=== PATIENT | male | born 1950 | race Caucasian/White ===

== ENCOUNTER 2017-01-17 19:18 | Inpatient (IN) | payer OTHER ==
[~2017-01-17] VITALS: Ht 188 cm; Wt 85.0 kg
[2017-01-17 19:20] VITALS: BP 162/108; PULSE 97; RESP 18; TEMP 98.2; O2SAT 98
--- NOTE | 2017-01-17 20:03 | PD ---
Physical Exam Date Seen by Provider: Jan 17, 2017 Time Seen by Provider: 19:56 Narrative 66 YOWM C/O 2 WEEKS AGO NEAR FALL WITH POP IN L THIGH FOLLOWED BY SWELLING AND ECCHYMOSIS.NO NECK OR BACK PAIN . H/O ALCOHOL VS NOTED. PT AWAITING BED PLACEMENT. Data Data Last Documented VS Vital Signs Date Time Temp Pulse Resp B/P Pulse Ox O2 Delivery O2 Flow Rate FiO2 01/17/17 19:20 98.2 97 18 162/108 98 Room Air [facility] Medical Record Reviewed: Yes Supervised Visit with KACIE: Yes Jewel Villavicencio Jan 17, 2017 20:03
--- NOTE | 2017-01-17 20:17 | PD ---
HPI Chief Complaint: Fall Time Seen by Provider: 20:11 Travel History International Travel<30 days: No Contact w/Intl Traveler<30days: No Traveled to known affect area: No History of Present Illness HPI The patient is a 66 year old male who presents to the [facility] emergency department with a history of reportedly 5 weeks ago slipping and falling on tile floor. He reports that he fell into a split position landing on bilateral hands. He denies hitting his head or losing consciousness. He reports that he felt immediate pain and a pop in the left anterior thigh. The patient reports that he has not been able to weight-bear since then. He reports that he has been using a wheelchair at home. The patient reports that the leg developing bruising all the way down to the foot. He reports that he does not have a primary care physician. He is visiting from [place] since June 2016. He reports that he has not seen a doctor for evaluation for the last 40 years. The patient denies having any other extremity pain. The patient denies any recent fevers, cough, congestion, neck pain, chest pain, shortness of breath, abdominal pain, vomiting, diarrhea, urinary symptoms, or neurologic symptoms. ETOH: vodka and tea 6-8 per day. PFSH Past Medical History Narrative Medical The patient's past medical history is significant for daily alcohol abuse, tobacco use. Medical History: Denies Significant Hx Past Surgical History Narrative Surgical The patient's past surgical history is significant for a tonsillectomy, multiple dental extractions. Surgical History: No Previous Surgery Tonsillectomy: Yes Social History Alcohol Use: Yes (6-8 per DAILY) Tobacco Use: Yes (1/2PPD) Substance Use: No Allergies-Medications (Allergen,Severity, Reaction): Coded Allergies: No Known Allergies (Unverified , 01/17/17) Narrative Medication Aleve PRN, Tylenol PRN Review of Systems Except as stated in HPI: all other systems reviewed are Neg General / Constitutional: No: Fever, Chills Eyes: No: Visual changes HENT: No: Headaches Cardiovascular: No: Chest Pain or Discomfort, Dyspnea on exertion Respiratory: No: Shortness of Breath Gastrointestinal: No: Nausea, Diarrhea, Abdominal Pain, Changes in Bowel Habits , Indigestion Genitourinary: No: Dysuria Musculoskeletal: Positive: Myalgias, Arthralgias, Limited ROM, Edema, No: Pain Skin: No Rash Neurologic: Positive: Slurred Speech, No: Weakness, Focal Abnormalities, Change in Mentation, Sensory Disturbance Psychiatric: Positive: Substance Abuse, No: Depression Endocrine: No: Polydipsia Hematologic/Lymphatic: No: Easy Bruising Physical Exam Narrative General: The patient is a well-developed well-nourished male in no acute distress. Head and Neck exam: Head is normocephalic atraumatic. Eyes: EOMI, pupils are equal round and reactive to light. Nose: Midline septum with pink mucous membranes Mouth: Dentition unremarkable. Moist mucus membranes. Posterior oropharynx is not erythematous. No tonsillar hypertrophy. Uvula midline. Airway patent. Neck: No palpable lymphadenopathy. No nuchal rigidity. No thyromegaly. Cardiovascular: Regular rate and rhythm without murmurs, gallops, or rubs. Lungs: Clear to auscultation bilaterally. No wheezes, rhonchi, or rales. Abdomen: Soft, without tenderness to palpation in all 4 quadrants of the abdomen. No guarding, rebound, or rigidity. Normal bowel sounds are audible. No tenderness on palpation of McBurney's point. Extremities: No pelvic pain or pelvic instability on pelvic rock. No clubbing, cyanosis, or edema. 2+ pulses in all 4 extremities. The patient on examination of the left leg is noted to have shortening and external rotation. The patient is noted to have swelling along the anterior upper and lateral thigh. There is tenderness noted to the site on palpation. No crepitus on palpation. The patient has intact sensation of all toes. The patient has less than 3 second capillary refill. Back: No costovertebral angle tenderness to palpation. Neurologic Exam: Cranial nerves 2-12 were intact on exam. Strength is 5/5 in all 4 extremities. No sensory deficits noted. The patient is oriented to person, place, however not time. The patient has slurred speech with an odor of alcohol about him. Skin Exam: No rash noted. Intact skin that is warm and dry. Data Data Last Documented VS Vital Signs Date Time Temp Pulse Resp B/P Pulse Ox O2 Delivery O2 Flow Rate FiO2 01/17/17 20:44 18 99 Room Air 01/17/17 19:20 98.2 97 162/108 Orders Diet Npo (01/18/17 Breakfast) Complete Blood Count With Diff (01/17/17 20:24) Comprehensive Metabolic Panel (01/17/17 20:24) Prothrombin Time / Inr (Pt) (01/17/17 20:24) Act Partial Throm Time (Ptt) (01/17/17 20:24) Type And Screen (01/17/17 20:24) Urinalysis - C+S If Indicated (01/17/17 20:24) Femur (Ap & Lat/2vws) (01/17/17 20:24) Hip, Uni(Ap&Lat) W Ap Pelvis (01/17/17 20:24) Ice/Cold Pack (01/17/17 20:24) Electrocardiogram (01/17/17 20:24) Magnesium (Mg) (01/17/17 20:24) Chest, Single Ap (01/17/17 20:24) Iv Access Insert/Monitor (01/17/17 20:24) Ecg Monitoring (01/17/17 20:24) Oximetry (01/17/17 20:24) Drug Screen, Random Urine (01/17/17 20:24) Alcohol (Ethanol) (01/17/17 20:24) Sodium Chlor 0.9% 1000 Ml Inj (Ns 1000 M (01/17/17 20:30) Morphine Inj (Morphine Inj) (01/17/17 22:30) Ondansetron Inj (Zofran Inj) (01/17/17 22:30) Admit Order (Ed Use Only) (01/17/17 22:38) Splint Or Brace Apply/Monitor (01/17/17 22:38) Consult Orthopedic (01/17/17 ) Labs Laboratory Tests Test 01/17/17 20:50 White Blood Count 6.7 TH/MM3 Red Blood Count 5.98 MIL/MM3 Hemoglobin 18.8 GM/DL Hematocrit 57.0 % Mean Corpuscular Volume 95.3 FL Mean Corpuscular Hemoglobin 31.5 PG Mean Corpuscular Hemoglobin 33.0 % Concent Red Cell Distribution Width 17.4 % Platelet Count 254 TH/MM3 Mean Platelet Volume 7.5 FL Neutrophils (%) (Auto) 34.9 % Lymphocytes (%) (Auto) 56.3 % Monocytes (%) (Auto) 5.7 % Eosinophils (%) (Auto) 1.8 % Basophils (%) (Auto) 1.3 % Neutrophils # (Auto) 2.3 TH/MM3 Lymphocytes # (Auto) 3.8 TH/MM3 Monocytes # (Auto) 0.4 TH/MM3 Eosinophils # (Auto) 0.1 TH/MM3 Basophils # (Auto) 0.1 TH/MM3 CBC Comment DIFF FINAL Differential Comment Prothrombin Time 11.4 SEC Prothromb Time International 1.0 RATIO Ratio Activated Partial 27.8 SEC Thromboplast Time Sodium Level 138 MEQ/L Potassium Level 4.0 MEQ/L Chloride Level 98 MEQ/L Carbon Dioxide Level 28.3 MEQ/L Anion Gap 12 MEQ/L Blood Urea Nitrogen 4 MG/DL Creatinine 0.82 MG/DL Estimat Glomerular Filtration 95 ML/MIN Rate Random Glucose 84 MG/DL Calcium Level 9.3 MG/DL Magnesium Level 1.9 MG/DL Total Bilirubin 0.4 MG/DL Aspartate Amino Transf 27 U/L (AST/SGOT) Alanine Aminotransferase 19 U/L (ALT/SGPT) Alkaline Phosphatase 142 U/L Total Protein 7.5 GM/DL Albumin 4.1 GM/DL Ethyl Alcohol Level 292 MG/DL Blood Type O POSITIVE Antibody Screen NEGATIVE Blood Bank Comment MDM Medical Decision Making Medical Screen Exam Complete: Yes Emergency Medical Condition: Yes Medical Record Reviewed: Yes Interpretation(s) Last Impressions Hip and Pelvis X-Ray 01/17/172023 Signed Impressions: Service Date/Time: Tuesday, January 17, 2017 21:19 - CONCLUSION: 1. Subtrochanteric fracture of the proximal left femur with at least one shaft width displacement. Jewel Styles MD Femur X-Ray 01/17/172023 Signed Impressions: Service Date/Time: Tuesday, January 17, 2017 21:23 - CONCLUSION: 1. Displaced subtrochanteric fracture left femur. Jewel Styles MD Chest X-Ray 01/17/172023 Signed Impressions: Service Date/Time: Tuesday, January 17, 2017 21:19 - CONCLUSION: 1. Minimal basilar atelectasis. No consolidation or effusion. Multiple healed right rib fractures. Jewel Styles MD Differential Diagnosis Quadriceps rupture, versus left hip fracture, versus left femur fracture, versus dislocation, versus hematoma Narrative Course During the course of the patients emergency department visit, the patients history, examination, and differential diagnosis were reviewed with the patient. The patient had IV access obtained and blood work sent for analysis. The patient was placed on a court monitor with oximetry and blood pressure monitoring. An x-ray of the chest, pelvis, left hip, left femur has been ordered. The patient had an EKG done that shows a sinus rhythm heart rate of 87 , nonspecific T-wave abnormalities, no acute ST segment elevation is noted. T waves are inverted in lead 3. The patient was provided normal saline at 75 mL per hour. The patients laboratory studies were reviewed and remarkable for white count of 6.7, hemoglobin 18.8, platelets 254 with 56.3 lymphocytes, CMP is remarkable for BUN of 4, alkaline phosphatase 142, PT PTT within normal limits, alcohol level to 92. Radiology studies were reviewed and remarkable for a left proximal femur fracture just beyond the intertrochanteric line that is displaced, at least 1 shaft width of displacement. A chest x-ray shows minimal Beseler atelectasis, no consolidation or effusion, multiple healed right rib fractures The patient's case was discussed with Dr. Garcia at 10:37 PM. He requested that the patient be admitted to the hospitalist service. While the patient was awaiting a bed for admission, the patient became increasingly agitated. The patient became belligerent to his significant other at the bedside. The patient was insistent on leaving. The patient's alcohol level came back at 292. The patient insisted that he would come back in the morning for his surgery. I patiently explained to him that he would not be able to leave as this surgery is not done as an outpatient. The patient reported that he will just let it heal on its own, however I explained that it would not heal on its own as it is displaced. The patient was oriented to person, place, however not time or situation. The patient's significant other left him after he became increasingly agitated and belligerent with her. The patient was placed under a Munoz act due to his acute alcohol intoxication and inability to care for himself and make appropriate decisions. The patients results were discussed with the patient, including the plan of care. I explained that further testing and/ or monitoring is indicated based on the patients history, examination, and/ or laboratory findings. Therefore, I recommended admission for additional evaluation. The patient expressed understanding and was agreeable with this plan. The patient was admitted to the hospital in guarded condition and [facility] Phys[facility] Communication Physician Communication The patient's case was discussed with Dr. Martinez who did agree to admit the patient for further evaluation and treatment at this time. The patient's case was discussed with Dr. Garcia who did agree to see the patient in consultation. He requested that the patient be made nothing by mouth after midnight. Diagnosis Primary Impression: Left femoral shaft fracture Qualified Code: S72.322A - Closed displaced transverse fracture of shaft of left femur, initial encounter Additional Impression: Alcohol intoxication Qualified Code: F10.129 - Alcohol intoxication, with unspecified complication Admitting Information Admitting Physician Requests: Admit Giovanna Milligan MD Jan 17, 2017 20:17
[2017-01-17 20:43] VITALS: RESP 18; O2SAT 99
[2017-01-17] MEDS: SODIUM CHLOR 0.9% 1000 ML INJ 1,000 ML IV SCH (20:56)
[2017-01-17 21:16] LABS: AUTOMATED NEUTROPHIL # 2.3 TH/MM3 (1.8-7.7); BASOPHIL # 0.1 TH/MM3 (0-0.2); BASOPHIL % 1.3 % (0.0-2.0); EOSINOPHIL # 0.1 TH/MM3 (0-0.4); EOSINOPHIL % 1.8 % (0.0-4.0); HEMO FLAGS DIFF FINAL; LYMPH % 56.3 % (9.0-44.0); LYMPHOCYTE # 3.8 TH/MM3 (1.0-4.8); MEAN CELL VOLUME 95.3 FL (80.0-100.0); MEAN CORPUSCULAR HEMOGLOBIN 31.5 PG (27.0-34.0); MONO % 5.7 % (0.0-8.0); NEUT % 34.9 % (16.0-70.0); PLATELET COUNT 254 TH/MM3 (150-450); RED BLOOD COUNT 5.98 MIL/MM3 (4.50-5.90); RED CELL DISTRIBUTION WIDTH 17.4 % (11.6-17.2); WHITE BLOOD COUNT 6.7 TH/MM3 (4.0-11.0)
[2017-01-17 21:43] LABS: ALKALINE PHOSPHATASE 142 U/L (45-117); ALT (GPT) 19 U/L (12-78); ANION GAP 12 MEQ/L (5-15); AST (GOT) 27 U/L (15-37); BICARBONATE 28.3 MEQ/L (21.0-32.0); BLOOD UREA NITROGEN 4 MG/DL (7-18); CHLORIDE 98 MEQ/L (98-107); GLOMERULAR FILTRATION RATE 95 ML/MIN (>89); MAGNESIUM 1.9 MG/DL (1.5-2.5); SODIUM (NA) 138 MEQ/L (136-145); TOTAL BILIRUBIN ADULT 0.4 MG/DL (0.2-1.0)
[2017-01-17 21:45] LABS: APTT (PATIENT) 27.8 SEC (24.3-30.1); PROTHROMBIN TIME - PATIENT 11.4 SEC (9.8-11.6)
--- NOTE | 2017-01-17 22:06 | RADRPT ---
EXAM DATE/TIME: 01/17/2017 21:19 [facility] COMPARISON: No previous studies available for comparison. INDICATIONS : Left hip pain, fell MEDICAL HISTORY : None. SURGICAL HISTORY : None. ENCOUNTER: Initial ACUITY: 1 month PAIN SCORE: 2/10 LOCATION: Left Hip FINDINGS: There is a displaced subtrochanteric fracture of the proximal left femur with at least one shaft widt h displacement. No dislocation at the hip. Bones are osteopenic. CONCLUSION: 1. Subtrochanteric fracture of the proximal left femur with at least one shaft width displacement. Jewel Styles MD on January 17, 2017 at 22:03 Board Certified Radiologist. This report was verified electronically.
--- NOTE | 2017-01-17 22:21 | RADRPT ---
EXAM DATE/TIME: 01/17/2017 21:19 [facility] COMPARISON: No previous studies available for comparison. INDICATIONS : Evaluate chest for trauma, fell MEDICAL HISTORY : None. SURGICAL HISTORY : None. ENCOUNTER: Initial ACUITY: 1 month PAIN SCORE: 0/10 LOCATION: chest FINDINGS: Mild basilar atelectasis. No effusion. No pneumothorax. Multiple healed right rib fractures. Tortuous aorta. CONCLUSION: 1. Minimal basilar atelectasis. No consolidation or effusion. Multiple healed right rib fractures. Jewel Styles MD on January 17, 2017 at 22:18 Board Certified Radiologist. This report was verified electronically.
--- NOTE | 2017-01-17 22:22 | RADRPT ---
EXAM DATE/TIME: 01/17/2017 21:23 [facility] COMPARISON: No previous studies available for comparison. INDICATIONS : Left proximal femur pain, fell MEDICAL HISTORY : None. SURGICAL HISTORY : None. ENCOUNTER: Initial ACUITY: 1 month PAIN SCORE: 6/10 LOCATION: Left Femur FINDINGS: There is a subtrochanteric fracture of the proximal left femur with just over one shaft width displac ement. No dislocation at the hip. Osteopenia. CONCLUSION: 1. Displaced subtrochanteric fracture left femur. Jewel Styles MD on January 17, 2017 at 22:20 Board Certified Radiologist. This report was verified electronically.
[2017-01-17] MEDS ORDERED: MORPHINE SULFATE 4 MG/ML INJ IV PUSH ONE (22:30)
[2017-01-17] MEDS ORDERED: ONDANSETRON HCL 4 MG/2 ML VIAL IV PUSH ONE (22:30)
--- NOTE | 2017-01-17 22:59 | HHI.HP ---
[facility] Service [facility] Hospitalists Primary Care Physician No Primary Care Physician Admission Diagnosis Left femur fracture Diagnoses: (1) Fall Diagnosis: Principal (2) Left femoral shaft fracture Diagnosis: Principal (3) Tobacco abuse Diagnosis: Principal (4) Alcohol abuse Diagnosis: Principal Travel History International Travel<30 Days: No Contact w/Intl Traveler <30 Da: No Traveled to Known Affected Are: No History of Present Illness This is a 66-year-old male with a PMH of Alcohol Abuse and Tobacco Abuse who presented to the ER with complaints of left hip pain x5 wks. Per pt he had mechanical slip and fall approx 5wks ago w/ severe left hip pain, unable to bare weight. Denies LOC or head trauma at that time. States he's been using wheelchair to get around. Has not sought medical attention until now due to increased bruising of left leg. On arrival, BP 162/108, HR was 97, O2 sat 98% on RA, Afebrile. WBC normal. Hgb 18.8. INR 1.0. Alcohol to 92. CXR with basilar atelectasis no consolidation, multiple healed right rib fractures. Femur X-ray with displaced subtrochanteric fracture of left femur. Hip x-ray shows same. Dr. Garcia consulted by ER physician, will evaluate for likely surgical intervention in a.m. Review of Systems Except as stated in HPI: all other systems reviewed are Neg ROS: 14 point review of systems otherwise negative. Past Family Social History Past Medical History PMH: Alcohol Abuse and Tobacco Abuse Past Surgical History PAST SURGICAL HISTORY: Tonsillectomy Allergies: Coded Allergies: No Known Allergies (Unverified , 01/17/17) Family History PAST FAMILY HISTORY: Reviewed. No h/o DM or CAD Social History PAST SOCIAL HISTORY: 6-8 Vodka Drinks per day. Smokes 1/2ppd. Negative for drugs. Physical Exam Vital Signs Vital Signs Date Time Temp Pulse Resp B/P Pulse Ox O2 Delivery O2 Flow Rate FiO2 01/17/17 20:44 18 99 Room Air 01/17/17 20:43 18 99 Room Air 01/17/17 19:20 98.2 97 18 162/108 98 Room Air Physical Exam PE: GENERAL: Pleasant middle-aged white male in no acute distress. HEENT: PERRLA, EOMI. No scleral icterus or conjunctival pallor. No lid lag or facial droop. CARDIOVASCULAR: Regular rate and rhythm. No obvious murmurs to auscultation. No chest tenderness to palpation. RESPIRATORY: No obvious rhonchi or wheezing. Clear to auscultation. Breath sounds equal bilaterally. GASTROINTESTINAL: Abdomen soft, non-tender, nondistended. BS normal. MUSCULOSKELETAL: Decreased ROM of LLE due to injury, externally rotated. + swelling to left thigh. Pulses intact. NEUROLOGICAL: Awake, alert and oriented x4. No focal neurologic deficits. Moving both upper and lower extremities spontaneously. Laboratory Laboratory Tests Test 01/17/17 20:50 White Blood Count 6.7 Red Blood Count 5.98 Hemoglobin 18.8 Hematocrit 57.0 Mean Corpuscular Volume 95.3 Mean Corpuscular Hemoglobin 31.5 Mean Corpuscular Hemoglobin 33.0 Concent Red Cell Distribution Width 17.4 Platelet Count 254 Mean Platelet Volume 7.5 Neutrophils (%) (Auto) 34.9 Lymphocytes (%) (Auto) 56.3 Monocytes (%) (Auto) 5.7 Eosinophils (%) (Auto) 1.8 Basophils (%) (Auto) 1.3 Neutrophils # (Auto) 2.3 Lymphocytes # (Auto) 3.8 Monocytes # (Auto) 0.4 Eosinophils # (Auto) 0.1 Basophils # (Auto) 0.1 CBC Comment DIFF FINAL Differential Comment Prothrombin Time 11.4 Prothromb Time International 1.0 Ratio Activated Partial 27.8 Thromboplast Time Sodium Level 138 Potassium Level 4.0 Chloride Level 98 Carbon Dioxide Level 28.3 Anion Gap 12 Blood Urea Nitrogen 4 Creatinine 0.82 Estimat Glomerular Filtration 95 Rate Random Glucose 84 Calcium Level 9.3 Magnesium Level 1.9 Total Bilirubin 0.4 Aspartate Amino Transf 27 (AST/SGOT) Alanine Aminotransferase 19 (ALT/SGPT) Alkaline Phosphatase 142 Total Protein 7.5 Albumin 4.1 Ethyl Alcohol Level 292 Blood Type O POSITIVE Antibody Screen NEGATIVE Blood Bank Comment Result Diagram: 01/17/17204901/17/172049 Assessment and Plan Problem List: (1) Fall ICD Code: W19.XXXA Status: Acute (2) Left femoral shaft fracture ICD Code: S72.302A Status: Acute (3) Alcohol abuse ICD Code: F10.10 Status: Acute (4) Tobacco abuse ICD Code: Z72.0 Status: Acute Assessment and Plan A/P: 1. Fall: s/p mechanical fall 5wks ago at home, denies LOC or head trauma, did not seek medical attention at time of fall. 2. Left Femur Fx: Femur X-ray w/ displaced subtrochanteric fracture of left femur, images reviewed by me. Dr. Garcia consulted by ER physician, plan is for surgical intervention. NPO, IVF, analgesics/antiemetics as needed. 3. Alcohol Abuse: 6-8 Vodka drinks per day, +intoxicated, Alcohol 292. High risk for withdrawal. Seizure Precautions, CIWA, MVT/Thiamine/Folate replacement. 4. Tobacco Abuse: Pt counselled. Ativan prn. CXR w/ basilar atelectasis, no acute findings, images reviewed by me. DuoNeb prn. 5. DVT Prophylaxis: Anticoagulation post op per Ortho 6. Social work for d/c planning as needed. 7. Case discussed w/ ER physician at length. Physician Certification 2 Midnight Certification Type: Admission for Inpatient Services Order for Inpatient Services The services are ordered in accordance with Medicare regulations or non- Medicare payer requirements, as applicable. In the case of services not specified as inpatient-only, they are appropriately provided as inpatient services in accordance with the 2-midnight benchmark. Estimated LOS (days): 2 days is the estimated time the patient will need to remain in the hospital, assuming treatment plan goals are met and no additional complications. Post-Hospital Plan: Not yet determined Problem Qualifiers (1) Left femoral shaft fracture: Qualified Code: S72.322A - Closed displaced transverse fracture of shaft of left femur, initial encounter Alicia Martinez MD Jan 17, 2017 22:59
[2017-01-17] MEDS ORDERED: BISACODYL 10 MG SUPP RECTAL PRN (23:00)
[2017-01-17] MEDS ORDERED: HALOPERIDOL LACTATE 5 MG/ML AMP IM PRN (23:00)
[2017-01-17] MEDS ORDERED: LORazepam 2 MG TAB PO PRN (23:00)
[2017-01-17] MEDS: THIAMINE INJ 100 MG in SODIUM CHLORIDE 0.9% INJ 100 ML IV SCH (23:00)
[2017-01-17] MEDS ORDERED: LORazepam 1 MG TAB PO PRN (23:00)
[2017-01-17] MEDS ORDERED: ACETAMINOPHEN 325 MG TAB PO PRN (23:00)
[2017-01-17] MEDS ORDERED: FLUMAZENIL 0.5 MG/5 ML VIAL IV PUSH PRN (23:00)
[2017-01-17] MEDS ORDERED: LORazepam 2 MG/ML VIAL IV PUSH PRN ×4 (23:00)
[2017-01-17] MEDS ORDERED: SODIUM CHLORIDE 0.9% FLUSH 10 ML FLUSH IV FLUSH PRN (23:00)
[2017-01-17] MEDS ORDERED: ONDANSETRON HCL 4 MG/2 ML VIAL IVP PRN (23:00)
[2017-01-17] MEDS ORDERED: MORPHINE SULFATE 4 MG/ML INJ IV PRN (23:00)
[2017-01-17] MEDS ORDERED: ACETAMINOPHEN/HYDROcodone 325 MG/5 MG TAB PO PRN (23:00)
[2017-01-17] MEDS ORDERED: THIAMINE INJ 100 MG in SODIUM CHLORIDE 0.9% INJ 100 ML IV ONE (23:30)
[2017-01-17] MEDS ORDERED: LORazepam 2 MG/ML VIAL IV PUSH ONE (23:30)
[2017-01-18] VITALS (7 sets, daily range): BP systolic 109–168; BP diastolic 64–93; PULSE 67–110; RESP 17–18; TEMP 96.7–98.1; O2SAT 95–98
[2017-01-18] MEDS: MULTIVITAMIN INJ 10 ML, FOLIC ACID INJ 1 MG in SODIUM CHLORID 0.9% 500 ML INJ 500 ML IV SCH ×2 (00:22→23:26)
[2017-01-18] MEDS ORDERED: POVIDONE IODINE 5% (ANTISEPSIS KIT) 4 APPLICATIONS EACH NARE PRN (02:15)
[2017-01-18] MEDS ORDERED: LACTATED RINGER'S 1000 ML IV PRN (02:15)
[2017-01-18] MEDS ORDERED: INSULIN HUMAN REGULAR 1,000 UNITS/10 ML VIAL SQ PRN (02:15)
[2017-01-18] MEDS ORDERED: SODIUM CHLORID 0.9% 500 ML IV PRN (02:15)
[2017-01-18] MEDS ORDERED: CHLORHEXIDINE GLUCONATE 2 % 1 PACK (2 CLOTHS) TOPICAL PRN (02:15)
[2017-01-18] MEDS ORDERED: METOPROLOL TARTRATE 25 MG TAB PO PRN (02:15)
[2017-01-18] MEDS ORDERED: ceFAZolin 2 GM PREMIX 50 ML IV SCH (05:00)
--- NOTE | 2017-01-18 06:36 | PD.ORT.PN ---
Subjective Subjective Remarks s/p fall approx 5-8 weeks ago. patient unsure as to exact time frame. states was walking in kitchen when slipped and fell. heard and felt pop in left hip. immediate pain. states used wheelchair for ambulating and pain eventually subsided. reports no pain currently. Objective Vitals Vital Signs Date Time Temp Pulse Resp B/P Pulse Ox O2 Delivery O2 Flow Rate FiO2 01/18/17 04:28 96.7 74 17 113/64 96 01/18/17 00:22 95 18 134/80 98 Room Air 01/18/17 00:07 Room Air 01/17/17 20:44 18 99 Room Air 01/17/17 20:43 18 99 Room Air 01/17/17 19:20 98.2 97 18 162/108 98 Room Air Result Diagram: 01/17/17204901/17/172049 Other Results Laboratory Tests Test 01/17/17 20:50 Prothrombin Time 11.4 SEC (9.8-11.6) Prothromb Time International 1.0 RATIO Ratio Imaging Last 24 hours Impressions Hip and Pelvis X-Ray 01/17/172023 Signed Impressions: Service Date/Time: Tuesday, January 17, 2017 21:19 - CONCLUSION: 1. Subtrochanteric fracture of the proximal left femur with at least one shaft width displacement. Jewel Styles MD Femur X-Ray 01/17/172023 Signed Impressions: Service Date/Time: Tuesday, January 17, 2017 21:23 - CONCLUSION: 1. Displaced subtrochanteric fracture left femur. Jewel Styles MD Chest X-Ray 01/17/172023 Signed Impressions: Service Date/Time: Tuesday, January 17, 2017 21:19 - CONCLUSION: 1. Minimal basilar atelectasis. No consolidation or effusion. Multiple healed right rib fractures. Jewel Styles MD Objective Remarks LLE: full motion of hip. no pain. NVI Assessment & Plan Assessment and Plan 1) Left Subtroch Femur Fx -npo -consents -surgery today Alex Kern Jan 18, 2017 06:36
[2017-01-18 07:04] LABS: ALKALINE PHOSPHATASE 105 U/L (45-117); ALT (GPT) 14 U/L (12-78); ANION GAP 12 MEQ/L (5-15); AST (GOT) 20 U/L (15-37); BICARBONATE 21.3 MEQ/L (21.0-32.0); BLOOD UREA NITROGEN 5 MG/DL (7-18); CHLORIDE 106 MEQ/L (98-107); GLOMERULAR FILTRATION RATE 128 ML/MIN (>89); POTASSIUM 4.2 MEQ/L (3.5-5.1); SODIUM (NA) 139 MEQ/L (136-145); TOTAL BILIRUBIN ADULT 0.4 MG/DL (0.2-1.0)
[2017-01-18 07:19] LABS: AUTOMATED NEUTROPHIL # 1.7 TH/MM3 (1.8-7.7); BASOPHIL % 0.9 % (0.0-2.0); EOSINOPHIL # 0.1 TH/MM3 (0-0.4); EOSINOPHIL % 2.8 % (0.0-4.0); HEMATOCRIT 47.6 % (39.0-51.0); HEMO FLAGS DIFF FINAL; LYMPHOCYTE # 2.8 TH/MM3 (1.0-4.8); MEAN CORPUSCULAR HEMOGLOBIN 32.1 PG (27.0-34.0); MEAN CORPUSCULAR HGB CONC 33.4 % (32.0-36.0); MONO % 8.4 % (0.0-8.0); NEUT % 33.9 % (16.0-70.0); PLATELET COUNT 248 TH/MM3 (150-450); RED BLOOD COUNT 4.96 MIL/MM3 (4.50-5.90); RED CELL DISTRIBUTION WIDTH 17.3 % (11.6-17.2); WHITE BLOOD COUNT 5.2 TH/MM3 (4.0-11.0)
[2017-01-18] MEDS ORDERED: SODIUM CHLORIDE 0.9% FLUSH 10 ML FLUSH IV FLUSH SCH (09:00)
--- NOTE | 2017-01-18 09:43 | HHI.PR ---
Subjective Remarks Follow-up femur fracture, alcohol abuse. Patient reports ongoing pain in the left hip. No other complaints at this time. Going for surgery this morning. Objective Vitals Vital Signs Date Time Temp Pulse Resp B/P Pulse Ox O2 Delivery O2 Flow Rate FiO2 01/18/17 07:46 98.1 67 18 109/64 95 01/18/17 04:28 96.7 74 17 113/64 96 01/18/17 00:22 95 18 134/80 98 Room Air 01/18/17 00:07 Room Air 01/17/17 20:44 18 99 Room Air 01/17/17 20:43 18 99 Room Air 01/17/17 19:20 98.2 97 18 162/108 98 Room Air Result Diagram: 01/18/17 0552 01/18/17 0552 Imaging Last Impressions Hip and Pelvis X-Ray 01/17/172023 Signed Impressions: Service Date/Time: Tuesday, January 17, 2017 21:19 - CONCLUSION: 1. Subtrochanteric fracture of the proximal left femur with at least one shaft width displacement. Jewel Styles MD Femur X-Ray 01/17/172023 Signed Impressions: Service Date/Time: Tuesday, January 17, 2017 21:23 - CONCLUSION: 1. Displaced subtrochanteric fracture left femur. Jewel Styles MD Chest X-Ray 01/17/172023 Signed Impressions: Service Date/Time: Tuesday, January 17, 2017 21:19 - CONCLUSION: 1. Minimal basilar atelectasis. No consolidation or effusion. Multiple healed right rib fractures. Jewel Styles MD Objective Remarks General: No acute distress. Mildly tremulous. Heart: Regular rate and rhythm. No murmur. Lungs: Clear to auscultation bilaterally. No wheezes, rales, or rhonchi. Breathing is nonlabored. Abdomen: Soft, nontender, nondistended. Extremities: No lower extremity edema. Psych: Alert and oriented. Urinary Catheter: No Vascular Central Line Catheter: No A/P Problem List: (1) Fall ICD Code: W19.XXXA Status: Acute (2) Left femoral shaft fracture ICD Code: S72.302A Status: Acute (3) Alcohol abuse ICD Code: F10.10 Status: Chronic (4) Tobacco abuse ICD Code: Z72.0 Status: Chronic Assessment and Plan 1. Status post mechanical fall about 8 weeks ago at home per patient report. Did not seek medical attention at the time of the fall. 2. Left femur fracture: Appreciate orthopedic surgery recommendations. Planning for surgical intervention today. Nothing by mouth. Continue pain control. 3. Alcohol abuse: Continue CIWA protocol, seizure precautions. Continue multivitamin, thiamine, folate. Patient has been counseled. He presented to the ER intoxicated with an alcohol level of 292. Drink 6-8 vodka drinks per day. 4. Tobacco abuse: Counseled to quit smoking. DuoNeb as needed. 5. DVT prophylaxis: Prophylaxis on hold secondary to proposed surgical intervention. Will need anticoagulation per orthopedic surgery recommendations postoperatively. Problem Qualifiers (1) Left femoral shaft fracture: Qualified Code: S72.322A - Closed displaced transverse fracture of shaft of left femur, initial encounter Will Schaffer MD Jan 18, 2017 09:43
[2017-01-18] MEDS: SODIUM CHLOR 0.9% 1000 ML INJ 1,000 ML IV SCH ×2 (09:50→23:27)
[2017-01-18] MEDS ORDERED: ceFAZolin 2 GM PREMIX 50 ML ONE (09:52)
[2017-01-18] MEDS ORDERED: GENTAMICIN SULFATE 80 MG/2 ML VIAL ONE (09:53)
[2017-01-18] MEDS ORDERED: VANCOMYCIN HCL 1000 MG VIAL ONE (09:53)
[2017-01-18] MEDS ORDERED: FAMOTIDINE 20 MG/2 ML VIAL ONE (10:56)
[2017-01-18] MEDS ORDERED: ACETAMINOPHEN 1000 MG/100 ML VIAL IV ONE (10:56)
[2017-01-18] MEDS ORDERED: BUPIVACAINE/EPINEPHRINE 0.25% PF 10 ML VIAL ONE (11:02)
[2017-01-18] MEDS ORDERED: fentaNYL CITRATE 250 MCG/5 ML AMP ONE ×2 (11:03→13:39)
[2017-01-18] MEDS ORDERED: ONDANSETRON HCL 4 MG/2 ML VIAL ONE (11:04)
[2017-01-18] MEDS ORDERED: MIDAZOLAM HCL 2 MG/2 ML VIAL ONE (11:05)
[2017-01-18] MEDS ORDERED: TRANEXAMIC ACID INJ 1,000 MG/10 ML AMP ONE (11:54)
[2017-01-18 12:33] LABS: HEMATOCRIT 43.4 % (39.0-51.0); REVIEW FLAG FINAL
[2017-01-18] MEDS ORDERED: ERGOCALCIFEROL (VIT D2) 50,000 UNIT CAP PO ONE (13:00)
[2017-01-18] MEDS ORDERED: ENOXAPARIN SODIUM 30 MG/0.3 ML SYRINGE SQ SCH (13:00)
[2017-01-18] MEDS ORDERED: diphenhydrAMINE HCL 25 MG CAP PO PRN (13:00)
[2017-01-18] MEDS ORDERED: ACETAMINOPHEN/HYDROcodone 325 MG/7.5 MG TAB PO PRN (13:00)
[2017-01-18] MEDS ORDERED: SODIUM CHLORIDE 0.9% FLUSH 5 ML FLUSH IVF PRN (13:00)
[2017-01-18] MEDS: CALCIUM/VITAMIN D 250 MG/125 U TAB PO SCH ×2 (13:00→18:35)
[2017-01-18] MEDS ORDERED: MORPHINE SULFATE 4 MG/ML INJ IV PUSH PRN (13:00)
--- NOTE | 2017-01-18 13:05 | PD.OP ---
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 Surgeon: Darrick [facility] Customer Service(s): DENNIS Vazquez PA-C The surgical procedure was assisted by my physician social science research assistant. My P.A. presence was necessary throughout this case for the manipulation and positioning of the surgical extremity. My P.A. was assisting me throughout the duration of this procedure. The skill set of a physician social science research assistant was medically necessary to complete this procedure. During the surgical case the surgical pathologist was working at the back table and the physician social science research assistant was directly assisting me. Operation and Findings: Implants used: 12 mm x [400]mm Synthes TFNA troch nail Plan of activity: Toe-touch weightbearing Patient was seen and evaluated preoperatively. The patient has significant hip pain from proximal femur fracture from an injury over 6 weeks ago. He has been using a wheelchair and unable to ambulate.. The risk and benefits of surgery were discussed in depth with the patient to include bleeding, infection, nonunion, malunion, need for hip replacement, painful hardware, as well as medical competitions including blood clots, stroke, heart attack, and . Informed consent was obtained. Operative site was marked. Patient was brought to the operating room and placed on fracture table. IV sedation was administered by anesthesiologist. Timeout procedure was performed. Hip and leg were prepped with alcohol followed by DuraPrep and draped in the usual sterile fashion. IV antibiotics were given prior to incision. Procedure began with attempted reduction of fracture. Traction was applied. The leg was manipulated to achieve reduction. Because in the delay of patient' s presentation to the emergency room, the fracture was not reducible by closed fashion. Next, A three inch incision was made proximal to the trochanter. Subcutaneous tissue was dissected bluntly. Guidepin was placed at the tip of the trochanter and advanced into the femoral canal. Fluoroscopy confirmed appropriate guidepin placement. A opening reamer was placed over the guidepin. Next attention was turned to the fracture site. A 5 inch incision was made over the lateral aspect of the subtrochanteric femur region. Iliotibial band was split in line with fibers. Vastus lateralis was elevated. Fracture was now visualized. There was a large amount of fibrous tissue within the fracture site. Curettes and rongeurs were used to debride the fibrous tissue. The fracture was cleaned down to healthy bleeding bone. A fracture tenaculum was now placed around the fracture. Reduction was very difficult. Fracture was manipulated to achieve reasonable reduction. Next, A long ball tipped guide pin was now placed down the femoral canal into the center of the distal femur. The nail length was now measured. Fluoroscopy confirmed appropriate guidepin placement. Flexible reamers were now passed over the guidepin to ream the intramedullary canal. The Synthes TFNA nail was attached to the insertion handle. Nail was now placed over the guidepin into the femoral canal. Fluoroscopy confirmed appropriate nail placement. A second incision was made over the lateral thigh. Cannulas were placed through the insertion handle down to the femur. Guidepin was now placed through the femoral nail into the center of the femoral head. Fluoroscopy confirmed appropriate guidepin placement. Screw length was measured. Cannulated drill was placed over the guidepin. Appropriate length lag screw was now placed. The set screw was now tightened in dynamic mode. Next, traction was released. A cerclage cable was placed around the subtrochanteric femur. Care was taken to avoid injury to structures. Cable was tensioned appropriately. Cable was not crimped and cut. Using perfect kiana technique two distal interlocking screws were placed. Screw holes were predrilled and screw lengths were measured. Final fluoroscopy revealed well aligned fracture with well-placed hardware. Incision was closed with #1 Vicryl , 3-0 Vicryl, and cayla. Sterile dressings were applied. Patient was awakened and transferred to recovery room. Darrick Bermeo MD Jan 18, 2017 13:05
[2017-01-18] MEDS ORDERED: DO NOT ADM ANY ANTICOAGULANT DRUGS PRN (13:25)
--- NOTE | 2017-01-18 13:55 | EKG ---
Date Performed: 01/17/2017 Time Performed: 21:12:00 PTAGE: 66 years EKG: Sinus rhythm NONSPECIFIC T-WAVE ABNORMALITY BORDERLINE ECG NO PREVIOUS TRACING DOCTOR: Cheryl Ruiz Interpretating Date/Time 01/18/2017 13:55:30
[2017-01-18] MEDS ORDERED: NEOSTIGMINE 3 MG/3 ML SYR IV ONE (14:55)
[2017-01-18] MEDS ORDERED: PROPOFOL 200 MG/20 ML AMP IV ONE (14:55)
[2017-01-18] MEDS ORDERED: LACTATED RINGER'S 1000 ML INJ 3,000 ML IV ONE (14:55)
--- NOTE | 2017-01-18 16:58 | RADRPT ---
EXAM DATE/TIME: 01/18/2017 12:47 [facility] COMPARISON: FEMUR LEFT (AP & LAT/2VWS), January 17, 2017, 21:23. INDICATIONS : Left hip fracture repair with trochanteric nail and cable. OR. MEDICAL HISTORY : None. SURGICAL HISTORY : None. ENCOUNTER: Initial ACUITY: 1 day PAIN SCORE: Non-responsive. LOCATION: Left hip FINDINGS: An overriding displaced fracture involving the proximal left femoral shaft has been openly reduced an d fixated with a trochanteric nail and cable. The displacement has been partially reduced. Fixation d evice appears to be well positioned. CONCLUSION: Status post ORIF of the left femur as described. Marko Gongora MD on January 18, 2017 at 16:52 Board Certified Radiologist. This report was verified electronically.
[2017-01-18] MEDS: ceFAZolin 2 GM PREMIX 50 ML IV SCH (17:50)
[2017-01-18] MEDS: SODIUM CHLORIDE 0.9% FLUSH 5 ML FLUSH IVF SCH (20:17)
[2017-01-18] MEDS: THIAMINE INJ 100 MG in SODIUM CHLORIDE 0.9% INJ 100 ML IV SCH (23:26)
[2017-01-19] VITALS (7 sets, daily range): BP systolic 120–148; BP diastolic 74–98; PULSE 63–93; RESP 16–17; TEMP 96.5–98.1; O2SAT 96–98
[2017-01-19] MEDS: ceFAZolin 2 GM PREMIX 50 ML IV SCH ×3 (01:13→17:24)
--- NOTE | 2017-01-19 06:57 | PD.ORT.PN ---
Subjective Subjective Remarks POD 1 s/p ORIF with IMN left subtroch femur fx -doing well. reports no pain. states wants to go home Objective Vitals Vital Signs Date Time Temp Pulse Resp B/P Pulse Ox O2 Delivery O2 Flow Rate FiO2 01/19/17 04:26 98.0 84 17 142/94 97 01/19/17 00:50 97.6 63 17 137/87 96 01/18/17 20:45 97.6 110 17 168/93 97 01/18/17 18:20 96 Nasal Cannula 3.00 01/18/17 16:00 97.9 96 18 136/83 96 01/18/17 14:15 104 18 147/90 97 Nasal Cannula 3 01/18/17 14:00 95 18 148/91 95 Nasal Cannula 3 01/18/17 13:47 98 18 133/85 97 Nasal Cannula 3 01/18/17 13:40 100 18 150/94 95 Nasal Cannula 3 01/18/17 13:29 97.8 106 18 155/106 94 Nasal Cannula 3 01/18/17 10:01 97.4 88 17 162/92 97 01/18/17 07:46 98.1 67 18 109/64 95 I/O 01/18/17 01/18/17 01/18/17 01/19/17 01/19/17 01/19/17 07:00 15:00 23:00 07:00 15:00 23:00 Intake Total 4140 ml 240 ml 240 ml Output Total 2350 ml 500 ml Balance 1790 ml 240 ml -260 ml Intake Oral 240 ml 240 ml 240 ml IV Total 100 ml Packed Cells 500 ml Other 3300 ml Output Urine Total 850 ml 500 ml Estimated Blood Loss 1500 ml Other 0 ml # Voids 0 12 0 # Bowel Movements 0 0 Result Diagram: 01/18/17 1218 01/18/17 0552 Imaging Last 24 hours Impressions Hip and Pelvis X-Ray 01/17/172023 Signed Impressions: Service Date/Time: Tuesday, January 17, 2017 21:19 - CONCLUSION: 1. Subtrochanteric fracture of the proximal left femur with at least one shaft width displacement. Jewel Styles MD Femur X-Ray 01/17/172023 Signed Impressions: Service Date/Time: Tuesday, January 17, 2017 21:23 - CONCLUSION: 1. Displaced subtrochanteric fracture left femur. Jewel Styles MD Chest X-Ray 01/17/172023 Signed Impressions: Service Date/Time: Tuesday, January 17, 2017 21:19 - CONCLUSION: 1. Minimal basilar atelectasis. No consolidation or effusion. Multiple healed right rib fractures. Jewel Styles MD Objective Remarks LLE: full motion of hip. no pain. NVI. dressings clean and dry. intact. Assessment & Plan Assessment and Plan 1) Left Subtroch Femur Fx s/p ORIF and IMN - POD 1 -TTWB -daily dressing changes -patient will need DC to rehab. patient not safe for home. hx of alcoholism and noncompliance -f/u with Dr Alford or PA in 2 weeks Alex Kern Jan 19, 2017 06:57
[2017-01-19] MEDS ORDERED: VITA2000 PO (06:58)
[2017-01-19] MEDS ORDERED: NORC5TAB PO (06:58)
[2017-01-19] MEDS ORDERED: XARE10TA PO (06:58)
[2017-01-19] MEDS ORDERED: WALKER/ADULT/FO1 MIS (06:58)
[2017-01-19] MEDS ORDERED: ERGO1CAP30 PO (06:58)
[2017-01-19] MEDS ORDERED: CALCTAB19 PO (06:58)
[2017-01-19 07:56] LABS: HEMATOCRIT 40.2 % (39.0-51.0); REVIEW FLAG FINAL
[2017-01-19 08:12] LABS: AUTOMATED NEUTROPHIL # 6.9 TH/MM3 (1.8-7.7); BASOPHIL # 0.1 TH/MM3 (0-0.2); BASOPHIL % 0.6 % (0.0-2.0); EOSINOPHIL % 0.2 % (0.0-4.0); HEMATOCRIT 41.9 % (39.0-51.0); HEMO FLAGS DIFF FINAL; LYMPH % 18.5 % (9.0-44.0); LYMPHOCYTE # 1.8 TH/MM3 (1.0-4.8); MEAN CORPUSCULAR HEMOGLOBIN 30.7 PG (27.0-34.0); MEAN CORPUSCULAR HGB CONC 32.7 % (32.0-36.0); MONO % 9.3 % (0.0-8.0); NEUT % 71.4 % (16.0-70.0); PLATELET COUNT 196 TH/MM3 (150-450); RED BLOOD COUNT 4.46 MIL/MM3 (4.50-5.90); RED CELL DISTRIBUTION WIDTH 16.7 % (11.6-17.2); WHITE BLOOD COUNT 9.7 TH/MM3 (4.0-11.0)
[2017-01-19] MEDS: CALCIUM/VITAMIN D 250 MG/125 U TAB PO SCH ×3 (09:55→18:35)
[2017-01-19] MEDS: SODIUM CHLORIDE 0.9% FLUSH 5 ML FLUSH IVF SCH ×2 (09:55→20:31)
[2017-01-19] MEDS: CHOLECALCIFEROL (VIT D3) 5000 UNIT CAP PO SCH (09:55)
[2017-01-19] MEDS: SODIUM CHLOR 0.9% 1000 ML INJ 1,000 ML IV SCH (12:30)
[2017-01-19] MEDS: ENOXAPARIN SODIUM 30 MG/0.3 ML SYRINGE SQ SCH ×2 (12:30→13:04)
--- NOTE | 2017-01-19 14:28 | HHI.PR ---
Subjective Remarks Follow-up femur fracture, alcohol abuse. The patient states that he has no pain in his leg currently. He wants to go home. He states that he can get around in his wheelchair. He has refused physical therapy. He refused Lovenox. He has stated that he will leave AGAINST MEDICAL ADVICE. Objective Vitals Vital Signs Date Time Temp Pulse Resp B/P Pulse Ox O2 Delivery O2 Flow Rate FiO2 01/19/17 12:00 96.5 72 16 143/91 98 01/19/17 08:26 97.3 93 16 145/90 97 01/19/17 04:26 98.0 84 17 142/94 97 01/19/17 00:50 97.6 63 17 137/87 96 01/18/17 20:45 97.6 110 17 168/93 97 01/18/17 18:20 96 Nasal Cannula 3.00 01/18/17 16:00 97.9 96 18 136/83 96 I/O 01/18/17 01/18/17 01/18/17 01/19/17 01/19/17 01/19/17 07:00 15:00 23:00 07:00 15:00 23:00 Intake Total 4140 ml 240 ml 240 ml Output Total 2350 ml 500 ml Balance 1790 ml 240 ml -260 ml Intake Oral 240 ml 240 ml 240 ml IV Total 100 ml Packed Cells 500 ml Other 3300 ml Output Urine Total 850 ml 500 ml Estimated Blood Loss 1500 ml Other 0 ml # Voids 0 12 0 # Bowel Movements 0 0 Result Diagram: 01/19/17 0643 01/18/17 0552 Imaging Last Impressions Hip X-Ray 01/18/17 0000 Signed Impressions: Service Date/Time: Wednesday, January 18, 2017 12:47 - CONCLUSION: Status post ORIF of the left femur as described. Marko Gongora MD Hip and Pelvis X-Ray 01/17/172023 Signed Impressions: Service Date/Time: Tuesday, January 17, 2017 21:19 - CONCLUSION: 1. Subtrochanteric fracture of the proximal left femur with at least one shaft width displacement. Jewel Styles MD Femur X-Ray 01/17/172023 Signed Impressions: Service Date/Time: Tuesday, January 17, 2017 21:23 - CONCLUSION: 1. Displaced subtrochanteric fracture left femur. Jewel Styles MD Chest X-Ray 01/17/172023 Signed Impressions: Service Date/Time: Tuesday, January 17, 2017 21:19 - CONCLUSION: 1. Minimal basilar atelectasis. No consolidation or effusion. Multiple healed right rib fractures. Jewel Styles MD Objective Remarks General: No acute distress. Heart: Regular rate and rhythm. No murmur. Lungs: Clear to auscultation bilaterally. No wheezes, rales, or rhonchi. Breathing is nonlabored. Abdomen: Soft, nontender, nondistended. Extremities: No lower extremity edema. SCDs. Psych: Alert and oriented. Urinary Catheter: No Vascular Central Line Catheter: No A/P Problem List: (1) Fall ICD Code: W19.XXXA Status: Acute (2) Left femoral shaft fracture ICD Code: S72.302A Status: Acute (3) Alcohol abuse ICD Code: F10.10 Status: Chronic (4) Tobacco abuse ICD Code: Z72.0 Status: Chronic Assessment and Plan 1. Status post mechanical fall about 8 weeks ago at home per patient report. Did not seek medical attention at the time of the fall. 2. Left femur fracture: Status post open treatment left femur subtrochanteric nonunion, intramedullary nail fixation left femur. Management per orthopedic surgery. Continue pain control, bowel regimen. 3. Alcohol abuse: Continue CIWA protocol, seizure precautions. Continue multivitamin, thiamine, folate. Patient has been counseled. He presented to the ER intoxicated with an alcohol level of 292. Drinks 6-8 vodka drinks per day. 4. Tobacco abuse: Counseled to quit smoking. DuoNeb as needed. 5. DVT prophylaxis: Lovenox. Patient has been refusing anticoagulation. He was counseled regarding the risk of developing blood clots. Discharge Planning The patient has been threatening to leave AGAINST MEDICAL ADVICE. I explained to him why we recommend that he stay in the hospital. He has been counseled extensively regarding the need for physical therapy, anticoagulation. Problem Qualifiers (1) Left femoral shaft fracture: Qualified Code: S72.322A - Closed displaced transverse fracture of shaft of left femur, initial encounter Will Schaffer MD Jan 19, 2017 14:28
[2017-01-19] MEDS ORDERED: RIVAROXABAN 10 MG TAB PO SCH (18:00)
[2017-01-19] MEDS: THIAMINE INJ 100 MG in SODIUM CHLORIDE 0.9% INJ 100 ML IV SCH (23:25)
[2017-01-19] MEDS: MULTIVITAMIN INJ 10 ML, FOLIC ACID INJ 1 MG in SODIUM CHLORID 0.9% 500 ML INJ 500 ML IV SCH (23:25)
[2017-01-19] MEDS: ACETAMINOPHEN/HYDROcodone 325 MG/7.5 MG TAB PO PRN (23:33)
[2017-01-20 00:39] VITALS: BP 122/78; PULSE 83; RESP 17; TEMP 99.2; O2SAT 97
[2017-01-20] MEDS: ceFAZolin 2 GM PREMIX 50 ML IV SCH ×2 (01:47→09:00)
[2017-01-20] MEDS: SODIUM CHLOR 0.9% 1000 ML INJ 1,000 ML IV SCH (01:47)
[2017-01-20] MEDS ORDERED: DOCUSATE SODIUM 50 MG/SENNA 8.6 MG TAB PO PRN (03:30)
[2017-01-20] MEDS ORDERED: MAGNESIUM HYDROXIDE SUSP 30 ML CUP PO PRN (03:30)
[2017-01-20 04:50] VITALS: BP 131/83; PULSE 69; RESP 17; TEMP 98.2; O2SAT 96
--- NOTE | 2017-01-20 07:00 | PD.ORT.PN ---
Subjective Subjective Remarks Resting comfortably Objective Vitals Vital Signs Date Time Temp Pulse Resp B/P Pulse Ox O2 Delivery O2 Flow Rate FiO2 01/20/17 04:50 98.2 69 17 131/83 96 01/20/17 00:39 99.2 83 17 122/78 97 01/19/17 21:50 98 21 01/19/17 20:02 96.9 89 16 120/74 98 01/19/17 16:00 98.1 84 16 148/98 96 01/19/17 12:00 96.5 72 16 143/91 98 01/19/17 08:26 97.3 93 16 145/90 97 I/O 01/19/17 01/19/17 01/19/17 01/20/17 01/20/17 01/20/17 07:00 15:00 23:00 07:00 15:00 23:00 Intake Total 240 ml 720 ml 240 ml 120 ml Output Total 500 ml 1700 ml 600 ml 350 ml Balance -260 ml -980 ml -360 ml -230 ml Intake Oral 240 ml 720 ml 240 ml 120 ml Output Urine Total 500 ml 1700 ml 600 ml 350 ml # Bowel Movements 0 Result Diagram: 01/19/17 0643 01/18/17 0552 Imaging Last 24 hours Impressions Hip and Pelvis X-Ray 01/17/172023 Signed Impressions: Service Date/Time: Tuesday, January 17, 2017 21:19 - CONCLUSION: 1. Subtrochanteric fracture of the proximal left femur with at least one shaft width displacement. Jewel Styles MD Femur X-Ray 01/17/172023 Signed Impressions: Service Date/Time: Tuesday, January 17, 2017 21:23 - CONCLUSION: 1. Displaced subtrochanteric fracture left femur. Jewel Styles MD Chest X-Ray 01/17/172023 Signed Impressions: Service Date/Time: Tuesday, January 17, 2017 21:19 - CONCLUSION: 1. Minimal basilar atelectasis. No consolidation or effusion. Multiple healed right rib fractures. Jewel Styles MD Objective Remarks LLE: full motion of hip. no pain. NVI. dressings clean and dry. intact. Assessment & Plan Assessment and Plan 1) Left Subtroch Femur Fx s/p ORIF and IMN - POD 2 -TTWB -daily dressing changes -Patient may be discharged to home if cleared by physical therapy Case management for dressing changes -f/u with Dr Alford or PA in 2 weeks Avery Valle Jr. Jan 20, 2017 07:00
--- NOTE | 2017-01-20 07:01 | HHI.FF ---
Face to Face Verification Diagnosis: (1) Left femoral shaft fracture Physical Therapy Gait training, Safety evaluation Hip: Hip fracture, Protocol: Left Right LE Weight Bearing: Toe Touch WB Nursing Dressing Changes: Daily dressing change, Xeroform, Coverderm/Primapore I have seen patient Parth Matos on 01/20/17. My clinical findings support the need for the requested home health care services because: Limited ability to care for self I certify that my clinical findings support that this patient is homebound because: Unsteady gait/balance Avery Valle Jr. Jan 20, 2017 07:01
[2017-01-20 07:51] VITALS: BP 140/91; PULSE 83; RESP 16; TEMP 98.2; O2SAT 97
[2017-01-20] MEDS: CALCIUM/VITAMIN D 250 MG/125 U TAB PO SCH (09:00)
[2017-01-20] MEDS: CHOLECALCIFEROL (VIT D3) 5000 UNIT CAP PO SCH (09:00)
[2017-01-20] MEDS: SODIUM CHLORIDE 0.9% FLUSH 5 ML FLUSH IVF SCH (09:00)
--- NOTE | 2017-01-20 09:38 | HHI.DCPOC ---
Discharge Care Plan Diagnosis: (1) Fall (2) Alcohol intoxication (3) Tobacco abuse (4) Left femoral shaft fracture Goals to Promote Your Health * To prevent worsening of your condition and complications * To maintain your health at the optimal level Directions to Meet Your Goals Take your medications as prescribed Follow your dietary instruction Follow activity as directed Keep your appointments as scheduled Take your immunizations and boosters as scheduled If your symptoms worsen call your PCP, if no PCP go to Urgent Care Center or Emergency Room Smoking is Dangerous to Your Health. Avoid second hand smoke Call the 24-hour hour crisis hotline for domestic abuse at Will Schaffer MD Jan 20, 2017 09:38
--- NOTE | 2017-01-20 09:41 | HHI.DS ---
Discharge Summary Admission Date Jan 17, 2017 at 22:40 Discharge Date: Jan 20, 2017 Admitting Diagnosis Left femur fracture (1) Fall ICD Code: W19.XXXA (2) Left femoral shaft fracture ICD Code: S72.302A (3) Alcohol abuse ICD Code: F10.10 (4) Tobacco abuse ICD Code: Z72.0 Procedures 01/18/17 Open treatment left femur subtrochanteric nonunion, intramedullary nail fixation left femur Brief History - From Admission This is a 66-year-old male with a PMH of Alcohol Abuse and Tobacco Abuse who presented to the ER with complaints of left hip pain x5 wks. Per pt he had mechanical slip and fall approx 5wks ago w/ severe left hip pain, unable to bare weight. Denies LOC or head trauma at that time. States he's been using wheelchair to get around. Has not sought medical attention until now due to increased bruising of left leg. On arrival, BP 162/108, HR was 97, O2 sat 98% on RA, Afebrile. WBC normal. Hgb 18.8. INR 1.0. Alcohol to 92. CXR with basilar atelectasis no consolidation, multiple healed right rib fractures. Femur X-ray with displaced subtrochanteric fracture of left femur. Hip x-ray shows same. Dr. Garcia consulted by ER physician, will evaluate for likely surgical intervention in a.m. CBC/BMP: 01/19/17 0643 01/18/17 0552 Significant Findings Laboratory Tests Test 01/17/17 01/18/17 01/19/17 20:50 05:52 06:43 Red Blood Count 5.98 MIL/MM3 4.46 MIL/MM3 (4.50-5.90) (4.50-5.90) Hemoglobin 18.8 GM/DL (13.0-17.0) Hematocrit 57.0 % (39.0-51.0) Red Cell Distribution Width 17.4 % 17.3 % (11.6-17.2) (11.6-17.2) Lymphocytes (%) (Auto) 56.3 % 54.0 % (9.0-44.0) (9.0-44.0) Blood Urea Nitrogen 4 MG/DL (7-18) 5 MG/DL (7-18) Alkaline Phosphatase 142 U/L (45-117) Ethyl Alcohol Level 292 MG/DL (0-5) Monocytes (%) (Auto) 8.4 % (0.0-8.0) 9.3 % (0.0-8.0) Neutrophils # (Auto) 1.7 TH/MM3 (1.8-7.7) Total Protein 5.6 GM/DL (6.4-8.2) Albumin 2.8 GM/DL (3.4-5.0) 25-Hydroxy Vitamin D Total 29.0 ng/ML (30-100) Neutrophils (%) (Auto) 71.4 % (16.0-70.0) Imaging Last Impressions Hip X-Ray 01/18/17 0000 Signed Impressions: Service Date/Time: Wednesday, January 18, 2017 12:47 - CONCLUSION: Status post ORIF of the left femur as described. Marko Gongora MD Hip and Pelvis X-Ray 01/17/172023 Signed Impressions: Service Date/Time: Tuesday, January 17, 2017 21:19 - CONCLUSION: 1. Subtrochanteric fracture of the proximal left femur with at least one shaft width displacement. Jewel Styles MD Femur X-Ray 01/17/172023 Signed Impressions: Service Date/Time: Tuesday, January 17, 2017 21:23 - CONCLUSION: 1. Displaced subtrochanteric fracture left femur. Jewel Styles MD Chest X-Ray 01/17/172023 Signed Impressions: Service Date/Time: Tuesday, January 17, 2017 21:19 - CONCLUSION: 1. Minimal basilar atelectasis. No consolidation or effusion. Multiple healed right rib fractures. Jewel Styles MD PE at Discharge General: No acute distress. In a wheelchair. Heart: Regular rate and rhythm. No murmur. Lungs: Clear to auscultation bilaterally. No wheezes, rales, or rhonchi. Breathing is nonlabored. Abdomen: Soft, nontender, nondistended. Extremities: No lower extremity edema. SCDs. Psych: Alert and oriented. Pt update on day of discharge The patient states that he feels good today. He states that he is going home today. Reports that pain is well controlled. He did work with physical therapy this morning, but states that he does not need physical therapy at home. He continues to refuse anticoagulation. Hospital Course The patient was admitted for management of left hip fracture. Orthopedic surgery was consulted. Patient underwent open treatment with intramedullary nail fixation. Postoperative care was continued. Patient was noncompliant with recommended treatments including physical therapy and anticoagulation for DVT prophylaxis. He was cleared for discharge home with home health by orthopedic surgery. Case management was asked to assist with arranging home health for dressing changes. Pt Condition on Discharge: Stable Discharge Disposition: Disch w/ Home Health Serv Discharge Time: > 30 minutes Discharge Instructions DIET: Follow Instructions for: As Tolerated, No Restrictions Additional Diet Instructions: Avoid alcohol Activities you can perform: Toe Touch Weight Bearing Activities to Avoid: Shower Follow up Referrals: Drug/Alcohol Rehab Orthopedics - 02/02/17 @ [facility] with Darrick Alford MD New Medications: Calcium Carbonate-Vitamin D (Calcium 600+D 200) 600-200 Mg-Unit Tab 1 TAB PO BID Nutritional Supplement #30 Ref 0 TAB Cholecalciferol (Vitamin D3) 2,000 Unit Cap 2000 UNITS PO DAILY Nutritional Supplement #56 Ref 0 CAP Ergocalciferol (Ergocalciferol) 50,000 Unit Cap 59140 UNITS PO Q7D Nutritional Supplement #56 CAP Hydrocodone-Acetaminophen ([place]) 5-325 mg Tab 1 TAB PO Q4H PRN PAIN #60 Ref 0 TAB Rivaroxaban (Xarelto) 10 Mg Tab 10 MG PO DAILY Blood Clot Prevention #21 Ref 0 TAB Walker/Adult/Folding (Walker/Adult/Folding) 1 Mis Mis 1 EA .ROUTE DIRECTED #1 Ref 0 EA Will Schaffer MD Jan 20, 2017 09:41
[2017-01-20] MEDS: ACETAMINOPHEN/HYDROcodone 325 MG/7.5 MG TAB PO PRN (10:48)
[2017-01-21] MEDS ORDERED: THIAMINE HCL 100 MG TAB PO SCH (09:00)
== END 2017-01-20 11:40 | disposition home health service (06) | DRG 482 ==
LOC: NEPE 19:18 → NEDA 22:40 → N06A 01-18 01:46
PROVIDERS: ADMIT Family Medicine; ATTEND Family Medicine
PROC: 0QH704Z Insertion of Internal Fixation Device into Left Upper Femur, Open Approach (ICD-10-PCS; 2017-01-18)
PROC: 0QS706Z Reposition Left Upper Femur with Intramedullary Internal Fixation Device, Open Approach (ICD-10-PCS; principal; 2017-01-18 11:07)
DX: S72.22XA Displaced subtrochanteric fracture of left femur, initial encounter for closed fracture (principal); F10.129 Alcohol abuse with intoxication, unspecified; W01.0XXA Fall on same level from slipping, tripping and stumbling without subsequent striking against object, initial encounter; Y90.7 Blood alcohol level of 200-239 mg/100 ml; Z91.14 Patient's other noncompliance with medication regimen; Z91.19 Patient's noncompliance with other medical treatment and regimen; F17.210 Nicotine dependence, cigarettes, uncomplicated
CPT/HCPCS: 36430; 71010; 73502; 73552; 76000; 80053; 80307; 82306; 83735; 85014; 85018; 85025; 85610; 85730; 86850; 86900; 86901; 86920; 93005; 96360; 96361; C1713; J0131; J0690; J1580; J1650; J2060; J2250; J2405; J2710; J3010; J3370; J3411; J7030; J7040; J7120; P9016